=== PATIENT | female | born 1950 | race Caucasian/White ===

== ENCOUNTER 2018-02-10 13:53 | Emergency (ER) | payer OTHER | END 2018-02-10 17:18 | disposition home or self-care (01) | LOC: E/R 13:53 | DX: T82.9XXA Unspecified complication of cardiac and vascular prosthetic device, implant and graft, initial encounter (principal); N18.6 End stage renal disease; Y82.8 Other medical devices associated with adverse incidents; Z79.82 Long term (current) use of aspirin; Z99.2 Dependence on renal dialysis | CPT/HCPCS: 99283 ==